=== PATIENT | female | born 1930 | race Caucasian/White ===

== ENCOUNTER 2018-01-31 16:19 | Inpatient (IN) | payer MEDICAID, MEDICARE ==
[~2018-01-31] VITALS: Ht 149.9 cm; Wt 55.8 kg
--- NOTE | 2018-01-31 16:30 | NUR ---
Review of MAR papers from assisted living home was done. Page 3 of 4 is missing. [facility] was called. Nurse Donavan from [facility] will fax the missing page.
[2018-01-31 16:59] LABS: BASOPHILS # (AUTO) 0.1 K/uL (0.0-8.0); BASOPHILS % (AUTO) 0.9 % (0.0-2.0); EOSINOPHILS # (AUTO) 0.2 K/uL (0.0-0.7); EOSINOPHILS % (AUTO) 3.8 % (0.0-7.0); HEMATOCRIT 39.6 % (31.2-41.9); HEMOGLOBIN 12.8 g/dL (10.9-14.3); LYMPHOCYTES # (AUTO) 2.5 K/uL (20.0-40.0); LYMPHOCYTES % (AUTO) 43.8 % (20.5-51.5); MEAN CORPUSCULAR HEMOGLOBIN 27.4 uug (24.7-32.8); MEAN CORPUSCULAR HGB CONC 32 g/dL (32.3-35.6); MEAN CORPUSCULAR VOLUME 84.6 fL (75.5-95.3); MONOCYTES # (AUTO) 0.4 K/uL (2.0-10.0); MONOCYTES % (AUTO) 6.5 % (0.0-11.0); NEUTROPHILS # (AUTO) 2.6 K/uL (1.8-8.9); PLATELET COUNT (AUTO) 236 K/uL (179-408); RED BLOOD CELL COUNT(AUTO) 4.68 MIL/uL (3.63-4.92); WHITE BLOOD COUNT (AUTO) 5.8 K/uL (3.8-11.8)
[2018-01-31 17:04] LABS: CARBON DIOXIDE 32 mmol/L (21-32); CHLORIDE 108 mmol/L (98-107); CREATININE 0.8 mg/dL (0.6-1.3); GLUCOSE 97 mg/dL (74-106); POTASSIUM 3.8 mmol/L (3.5-5.1); UREA NITROGEN, BLOOD 17 mg/dL (7-18)
[2018-01-31 17:15] LABS: ETHANOL < 3 MG/DL (0-0)
[2018-01-31 17:19] LABS: ALANINE AMINOTRANSFERASE 42 U/L (14-59); ALKALINE PHOSPHATASE 112 U/L (50-136); ASPARTATE AMINOTRANSFERASE 22 U/L (15-37); BILIRUBIN,DIRECT 0.1 mg/dL (0.0-0.2); BILIRUBIN,TOTAL 0.5 mg/dL (0.2-1.0); TOTAL PROTEIN, SERUM 7.2 g/dL (6.4-8.2)
[2018-01-31 17:20] LABS: ACETAMINOPHEN < 2.0 ug/mL (10-30)
[2018-01-31 17:26] LABS: *BILIRUBIN,URIN NEGATIVE (NEGATIVE); *BLOOD, URINE 2+ (NEGATIVE); *CLARITY,URINE SLIGHTLY CLOUDY (CLEAR); *COLOR,URINE YELLOW (YELLOW); *KETONES,URINE NEGATIVE (NEGATIVE); *PROTEIN,URINE NEGATIVE (NEGATIVE); *UROBILINOGEN,URINE 0.2 E.U./dl (NORMAL); LEUKOCYTE ESTERASE ,URINE NEGATIVE (NEGATIVE); NITRITE, URINE NEGATIVE (NEGATIVE); UGLUCOSE NEGATIVE (NEGATIVE)
[2018-01-31 17:34] LABS: *AMPHETAMINE, URINE NEGATIVE (NEGATIVE); *BARBITURATE, URINE NEGATIVE (NEGATIVE); *CANNABINOID, URINE NEGATIVE (NEGATIVE); *COCCAINE, URINE NEGATIVE (NEGATIVE); *OPIATE, URINE NEGATIVE (NEGATIVE); *PHENCYCLIDINE SCREEN,URINE NEGATIVE (NEGATIVE)
[2018-01-31 17:40] LABS: BACTERIA,URINE RARE /HPF (NONE SEEN); SQUAMOUS EPITHELIAL CELL,UR FEW /HPF (NONE SEEN)
--- NOTE | 2018-01-31 18:03 | NUR ---
Dinner tray is at bedside, assisted with feeding.
--- NOTE | 2018-01-31 19:10 | NUR ---
Still for transfer [place] [facility], Santiago Obrien is preparing the necessary papers for psych HOLD, SBAR to LOLI Wright
--- NOTE | 2018-01-31 19:32 | NUR ---
REPORT GIVEN TO MHU NURSE, LOLI LAM
[2018-01-31] MEDS ORDERED: MAGN400O6 PO (19:41)
[2018-01-31] MEDS ORDERED: MEMA10TA PO (19:41)
[2018-01-31] MEDS ORDERED: CRAN450C PO (19:41)
[2018-01-31] MEDS ORDERED: ATOR20TA PO (19:41)
[2018-01-31] MEDS ORDERED: APIX5TAB PO (19:41)
[2018-01-31] MEDS ORDERED: ASCO500C18 PO (19:41)
[2018-01-31] MEDS ORDERED: DONE10TA11 PO (19:41)
[2018-01-31] MEDS ORDERED: ACET325T53 PO ×2 (19:41)
[2018-01-31] MEDS ORDERED: FOLI1TAB16 PO (19:41)
--- NOTE | 2018-01-31 19:55 | NUR ---
PT REFUSED MRSA SWAB, MADE AWARE
--- NOTE | 2018-01-31 19:59 | NUR ---
Pt. admitted to [facility]HU, under care of Dr. AYON/CAIT Belongs List completed
[2018-01-31] MEDS ORDERED: ACETAMINOPHEN 325 MG TABLET PO PRN (20:15)
[2018-01-31] MEDS ORDERED: MAGNESIUM HYDROXIDE 30 ML LIQUID UDC PO PRN (20:15)
[2018-01-31] MEDS ORDERED: MAG HYDROX/AL HYDROX/SIMETH 30 ML LIQUID UDC PO PRN (20:15)
[2018-01-31 20:31] VITALS: BP 141/76
--- NOTE | 2018-01-31 20:40 | NUR ---
GPS: Admitted to unit earlier an 88 yr.old female under the care of /Dr. Mendoza in stable condition. Pt.is on a 72 hour hold for GD. Pt.was aggressive,agitated,uncooperative during admission process. Pt.refused initial interview/sign paperworks. Pt.is at high risk for AWOL. Safe environment provided. Will continue to monitor behavior.
[2018-01-31] MEDS: LORAZEPAM 0.5 MG TABLET PO PRN (21:22)
--- NOTE | 2018-01-31 21:25 | NUR ---
GPS: Pt.trying to leave the unit. Re-directed by staff frequently at this time. Re-assured prn. Ativan 0.5mg offered and taken by pt. Will monitor effectiveness.
--- NOTE | 2018-02-01 00:06 | NUR ---
GPS: Asleep at this time. Bed alarm on for safety. In no form of distress noted.
[2018-02-01 07:30] VITALS: BP 176/96
[2018-02-01] MEDS ORDERED: APIXABAN 5 MG TABLET PO ONE (09:00)
[2018-02-01] MEDS: FOLIC ACID 1 MG TABLET PO SCH ×2 (10:12→17:00)
[2018-02-01] MEDS: busPIRone 5 MG TABLET PO SCH ×2 (12:19→17:00)
[2018-02-01 12:49] VITALS: BP 122/86
[2018-02-01] MEDS: LORAZEPAM 0.5 MG TABLET PO PRN ×2 (13:18→18:04)
[2018-02-01 15:45] VITALS: BP 169/88
[2018-02-01] MEDS: APIXABAN 5 MG TABLET PO SCH (17:05)
--- NOTE | 2018-02-01 17:13 | NUR ---
GPS/RN- patient anxious and restless wondering into all rooms, patient taking trash out of trash cans in the rooms, patient unsteady at times, patient high risk for falls. ambulating without regard for own safety. difficult to redirect at times.
--- NOTE | 2018-02-01 17:34 | NUR ---
GPS/RN- Dr Partida aware of patient behavior, sitter ordered for patient for safety. Orders received for Seroquel 12.5mg at 8pm, orders received and read back, consent in chart.
[2018-02-01] MEDS: ATORVASTATIN 20 MG TABLET PO SCH (20:04)
[2018-02-01] MEDS: GABAPENTIN 100 MG CAPSULE PO SCH (20:04)
[2018-02-01] MEDS: QUETIAPINE FUMARATE 25 MG TABLET PO SCH (20:05)
[2018-02-01 20:12] VITALS: BP 111/82
[2018-02-02 07:57] VITALS: BP 145/91
[2018-02-02] MEDS: busPIRone 5 MG TABLET PO SCH ×2 (08:03→17:44)
[2018-02-02] MEDS: GABAPENTIN 100 MG CAPSULE PO SCH ×2 (08:03→20:26)
[2018-02-02] MEDS: FOLIC ACID 1 MG TABLET PO SCH ×2 (08:03→17:44)
[2018-02-02] MEDS: APIXABAN 5 MG TABLET PO SCH ×2 (08:04→17:44)
--- NOTE | 2018-02-02 14:50 | NUR ---
Initial Discharge Instructions: Patient currently resides at [facility] [[address] [place] [address]; [phone]]. Spoke with patient's brother/DPOA, Todd ([phone]) who reports he does not want the patient to return there, as the patient is an AWOL risk at other facility. Pt's brother is requesting a secure facility closer to [facility], as that is close to where he lives. SW will continue to collaborate with pt, family, and MD regarding appropriate discharge disposition for this patient. SW will form a safe and proper discharge.
[2018-02-02 15:59] VITALS: BP 104/73
[2018-02-02] MEDS: QUETIAPINE FUMARATE 25 MG TABLET PO SCH (20:26)
[2018-02-02] MEDS: ATORVASTATIN 20 MG TABLET PO SCH (20:26)
[2018-02-02 21:01] VITALS: BP 118/83
--- NOTE | 2018-02-02 21:14 | NUR ---
RECEIVED PATIENT IN THE DAY ROOM. SHE CONTINUE ON 1:1 SUPERVISION FOR FALL PRECAUTION. SHE IS NOTED A/O X 1. ABLE TO AMBULATE WITH STEADY GAIT. PATIENT HAS LIMITED PALAUAN; HOWEVER; SHE IS NOTED WITH FLIGHT OF IDEAS, TANGENTIAL SPEECH, BRIGHT AFFECT. SHE REMAINS COMPLIANT WITH MEDICATION REGIMENT AT THIS TIME. SAFETY WAS EMPHASIS, BED AT LOWEST POSITION WITH WHEELS LOCKED AND SIDE RAILS UP X 2. WILL CONTINUE TO MONITOR.
[2018-02-02] MEDS: TEMAZEPAM 7.5 MG CAPSULE PO PRN (22:08)
[2018-02-03 07:30] VITALS: BP 123/85
[2018-02-03] MEDS: APIXABAN 5 MG TABLET PO SCH ×2 (08:04→16:10)
[2018-02-03] MEDS: busPIRone 5 MG TABLET PO SCH ×2 (08:04→16:10)
[2018-02-03] MEDS: FOLIC ACID 1 MG TABLET PO SCH ×2 (08:04→16:10)
[2018-02-03] MEDS: GABAPENTIN 100 MG CAPSULE PO SCH ×2 (08:05→20:08)
[2018-02-03 14:25] VITALS: BP 120/70
[2018-02-03] MEDS: LORAZEPAM 0.5 MG TABLET PO PRN (14:36)
--- NOTE | 2018-02-03 16:00 | NUR ---
Firearms Report: Licensed Acupuncturist completed and submitted [employer]arms Report on 02/03/18 for 5250 grave disability certification.
[2018-02-03 20:00] VITALS: BP 122/84
[2018-02-03] MEDS: QUETIAPINE FUMARATE 25 MG TABLET PO SCH (20:00)
[2018-02-03] MEDS: ATORVASTATIN 20 MG TABLET PO SCH (20:08)
[2018-02-04] MEDS: TEMAZEPAM 7.5 MG CAPSULE PO PRN ×2 (00:07→22:08)
[2018-02-04 07:30] VITALS: BP 124/77
--- NOTE | 2018-02-04 08:07 | NUR ---
RECEIVED AN 88 Y/O FEMALE PT FROM [employer], LOLI LAM, PT NOTED ASLEEP IN BED, TO CONTINUE MONITORING.
[2018-02-04] MEDS: FOLIC ACID 1 MG TABLET PO SCH ×2 (09:29→18:36)
[2018-02-04] MEDS: busPIRone 5 MG TABLET PO SCH ×2 (09:30→18:39)
[2018-02-04] MEDS: GABAPENTIN 100 MG CAPSULE PO SCH ×2 (09:30→20:11)
--- NOTE | 2018-02-04 09:30 | NUR ---
PATIENT RECEIVED BREAKFAST TOLERATED WELL, FOLLOWED BY ALL HER DUE MEDICATION.PT IS COMPLIANT AND SEEMS PLEASANT.
[2018-02-04] MEDS: APIXABAN 5 MG TABLET PO SCH ×2 (09:31→18:40)
[2018-02-04 16:09] VITALS: BP 141/74
--- NOTE | 2018-02-04 18:45 | NUR ---
patient became itchy with upper body rash , Dr Estrella informed ordered to start on Zyrtec 10 mg Po, order carried out and first dose given.
[2018-02-04] MEDS: CETIRIZINE HCL 10 MG TABLET PO SCH (19:00)
--- NOTE | 2018-02-04 19:17 | NUR ---
PATIENTS REPORT GIVEN TO FINISHING OPERATORDEPOSITION OPERATOR
[2018-02-04 20:05] VITALS: BP 131/80
[2018-02-04] MEDS: QUETIAPINE FUMARATE 25 MG TABLET PO SCH (20:05)
[2018-02-04] MEDS: ATORVASTATIN 20 MG TABLET PO SCH (20:05)
--- NOTE | 2018-02-05 01:46 | NUR ---
RECEIVED PATIENT IN THE DAY ROOM WATCHING TV. SHE CONTINUE ON 1:1 SUPERVISION FOR SAFETY. SHE IS NOTED A/O X 1. ABLE TO AMBULATE WITH STEADY GAIT. PT SPEAKS LIMITED ESTONIAN; HOWEVER, SHE IS NOTED TANGENTAL, BRIGHT AFFECT. SHE REMAINS MEDICATION COMPLIANT AT THIS TIME. SAFETY WAS EMPHASIS, WILL CONTINUE TO MONITOR CLOSELY.
--- NOTE | 2018-02-05 07:00 | NUR ---
RECEIVED PATIENT ON BED AWAKE WITH 1:1 SITTER AT BEDSIDE. NO ACUTE DISTRESS NOTED. NO SI NOTED. PATIENT IS COOPERATIVE AND COMPLIANT WITH MEDS. IS REDIRECTABLE. COMFORT MEASURES PROVIDED. WILL CONTINUE TO MONITOR.
[2018-02-05 07:30] VITALS: BP 142/83
[2018-02-05] MEDS: FOLIC ACID 1 MG TABLET PO SCH ×2 (08:13→17:39)
[2018-02-05] MEDS: busPIRone 5 MG TABLET PO SCH ×2 (08:13→17:38)
[2018-02-05] MEDS: GABAPENTIN 100 MG CAPSULE PO SCH ×2 (08:14→20:23)
[2018-02-05] MEDS: CETIRIZINE HCL 10 MG TABLET PO SCH (08:14)
[2018-02-05] MEDS: APIXABAN 5 MG TABLET PO SCH ×2 (08:15→17:50)
--- NOTE | 2018-02-05 18:21 | NUR ---
PATIENT IN ACTIVITY ROOM, STILL WITH 1:! SITTER. COOPERATIVE, REDIRECTABLE, AND COMPLIANT WITH MEDS. IN STABLE CONDITION. ALL NEEDS ATTENDED AND ANTICIPATED. WILL CONTINUE TO MONITOR IRENE.
[2018-02-05 20:22] VITALS: BP 106/68
[2018-02-05] MEDS: QUETIAPINE FUMARATE 25 MG TABLET PO SCH (20:23)
[2018-02-05] MEDS: ATORVASTATIN 20 MG TABLET PO SCH (20:23)
[2018-02-06 07:30] VITALS: BP 127/78
[2018-02-06] MEDS: FOLIC ACID 1 MG TABLET PO SCH ×2 (09:50→16:06)
[2018-02-06] MEDS: GABAPENTIN 100 MG CAPSULE PO SCH ×2 (09:50→20:01)
[2018-02-06] MEDS: CETIRIZINE HCL 10 MG TABLET PO SCH (09:51)
[2018-02-06] MEDS: busPIRone 5 MG TABLET PO SCH ×2 (09:51→16:06)
[2018-02-06] MEDS: APIXABAN 5 MG TABLET PO SCH ×2 (09:55→16:07)
[2018-02-06] MEDS: LORAZEPAM 0.5 MG TABLET PO PRN (12:47)
--- NOTE | 2018-02-06 14:53 | NUR ---
SBAR report received. Pt with 1:1 sitter. Pt assessed, no acute distress noted. Pt compliant with routine medications and care. All comfort and safety needs attended to. Pt able to CFS, even when slightly agitated. PRN medication administered as ordered. Will continue to monitor.
[2018-02-06 15:18] VITALS: BP 120/71
[2018-02-06 19:30] VITALS: BP 128/80
[2018-02-06] MEDS: QUETIAPINE FUMARATE 25 MG TABLET PO SCH (20:01)
[2018-02-06] MEDS: ATORVASTATIN 20 MG TABLET PO SCH (20:01)
[2018-02-07 07:30] VITALS: BP 143/68
[2018-02-07] MEDS: FOLIC ACID 1 MG TABLET PO SCH ×2 (08:32→16:08)
[2018-02-07] MEDS: CETIRIZINE HCL 10 MG TABLET PO SCH (08:32)
[2018-02-07] MEDS: GABAPENTIN 100 MG CAPSULE PO SCH ×2 (08:32→20:02)
[2018-02-07] MEDS: busPIRone 5 MG TABLET PO SCH ×2 (08:37→16:08)
[2018-02-07] MEDS: APIXABAN 5 MG TABLET PO SCH ×2 (08:38→16:08)
[2018-02-07 15:02] VITALS: BP 138/69
[2018-02-07] MEDS: LORAZEPAM 0.5 MG TABLET PO PRN (15:03)
[2018-02-07 20:00] VITALS: BP 130/82
[2018-02-07] MEDS: ATORVASTATIN 20 MG TABLET PO SCH (20:02)
[2018-02-07] MEDS: QUETIAPINE FUMARATE 25 MG TABLET PO SCH (20:02)
[2018-02-07] MEDS: TEMAZEPAM 7.5 MG CAPSULE PO PRN (22:01)
[2018-02-08 07:30] VITALS: BP 160/98
[2018-02-08] MEDS: CETIRIZINE HCL 10 MG TABLET PO SCH (08:20)
[2018-02-08] MEDS: FOLIC ACID 1 MG TABLET PO SCH ×2 (08:20→15:32)
[2018-02-08] MEDS: APIXABAN 5 MG TABLET PO SCH ×2 (08:20→15:33)
[2018-02-08] MEDS: busPIRone 5 MG TABLET PO SCH ×3 (08:20→15:32)
[2018-02-08] MEDS: GABAPENTIN 100 MG CAPSULE PO SCH ×2 (08:20→20:03)
[2018-02-08 09:51] LABS: BASOPHILS % (AUTO) 0.7 % (0.0-2.0); EOSINOPHILS # (AUTO) 0.2 K/uL (0.0-0.7); EOSINOPHILS % (AUTO) 3.7 % (0.0-7.0); HEMATOCRIT 38.7 % (31.2-41.9); HEMOGLOBIN 12.8 g/dL (10.9-14.3); LYMPHOCYTES # (AUTO) 2.3 K/uL (20.0-40.0); LYMPHOCYTES % (AUTO) 42.2 % (20.5-51.5); MEAN CORPUSCULAR HGB CONC 33 g/dL (32.3-35.6); MEAN CORPUSCULAR VOLUME 84.5 fL (75.5-95.3); MONOCYTES # (AUTO) 0.3 K/uL (2.0-10.0); NEUTROPHILS # (AUTO) 2.6 K/uL (1.8-8.9); NEUTROPHILS % (AUTO) 47.4 % (38.5-71.5); PLATELET COUNT (AUTO) 223 K/uL (179-408); RED BLOOD CELL COUNT(AUTO) 4.58 MIL/uL (3.63-4.92); WHITE BLOOD COUNT (AUTO) 5.4 K/uL (3.8-11.8)
[2018-02-08 10:06] LABS: ALANINE AMINOTRANSFERASE 30 U/L (14-59); ALKALINE PHOSPHATASE 114 U/L (50-136); ASPARTATE AMINOTRANSFERASE 27 U/L (15-37); BILIRUBIN,TOTAL 1.1 mg/dL (0.2-1.0); CARBON DIOXIDE 31 mmol/L (21-32); CHLORIDE 105 mmol/L (98-107); CREATININE 0.8 mg/dL (0.6-1.3); GLUCOSE 138 mg/dL (74-106); MAGNESIUM 2.1 mg/dL (1.8-2.4); PHOSPHOROUS 3.9 mg/dL (2.5-4.9); POTASSIUM 4.5 mmol/L (3.5-5.1); TOTAL PROTEIN, SERUM 7.4 g/dL (6.4-8.2); UREA NITROGEN, BLOOD 20 mg/dL (7-18)
[2018-02-08 10:15] LABS: THYROID STIMULATING HORMONE 1.787 mIU/mL (0.358-3.740)
[2018-02-08 15:53] VITALS: BP 128/98
[2018-02-08] MEDS: ATORVASTATIN 20 MG TABLET PO SCH (20:03)
[2018-02-08] MEDS: QUETIAPINE FUMARATE 25 MG TABLET PO SCH (20:03)
[2018-02-08 20:15] VITALS: BP 115/95
[2018-02-09 07:30] VITALS: BP 120/63
[2018-02-09] MEDS: GABAPENTIN 100 MG CAPSULE PO SCH ×2 (08:24→20:35)
[2018-02-09] MEDS: CETIRIZINE HCL 10 MG TABLET PO SCH (08:24)
[2018-02-09] MEDS: busPIRone 5 MG TABLET PO SCH ×3 (08:25→17:49)
[2018-02-09] MEDS: APIXABAN 5 MG TABLET PO SCH ×2 (08:26→17:50)
[2018-02-09] MEDS: FOLIC ACID 1 MG TABLET PO SCH ×2 (08:26→17:49)
[2018-02-09 16:00] VITALS: BP 125/89
[2018-02-09 20:15] VITALS: BP 120/82
[2018-02-09] MEDS: ATORVASTATIN 20 MG TABLET PO SCH (20:35)
[2018-02-09] MEDS: QUETIAPINE FUMARATE 25 MG TABLET PO SCH (20:35)
[2018-02-09] MEDS ORDERED: MAGNESIUM HYDROXIDE 30 ML LIQUID UDC PO PRN (22:00)
[2018-02-10] MEDS: TEMAZEPAM 7.5 MG CAPSULE PO PRN (00:29)
--- NOTE | 2018-02-10 06:09 | NUR ---
GPS:RECEIVED PATIENT ON BED AWAKE WITH 1:1 SITTER AT BEDSIDE. NO ACUTE DISTRESS NOTED. NO SI NOTED. PATIENT IS COOPERATIVE AND COMPLIANT WITH MEDS. COMFORT MEASURES PROVIDED. SLEPT 5 HRS THROUGH THE NIGHT.WILL CONTINUE TO MONITOR.
[2018-02-10 07:30] VITALS: BP 138/84
[2018-02-10] MEDS: busPIRone 5 MG TABLET PO SCH ×2 (08:31→12:40)
[2018-02-10] MEDS: FOLIC ACID 1 MG TABLET PO SCH (08:31)
[2018-02-10] MEDS: APIXABAN 5 MG TABLET PO SCH (08:31)
[2018-02-10] MEDS: GABAPENTIN 100 MG CAPSULE PO SCH (08:32)
[2018-02-10] MEDS: CETIRIZINE HCL 10 MG TABLET PO SCH (08:32)
--- NOTE | 2018-02-10 09:29 | NUR ---
Discharge Note: Patient will be discharged to [facility] [[address], [place] [address]; [phone]] via ambulance today. Spoke with Jasper at the facility who states they are ready to accept the patient today. Spoke with patient's brother/DPOA, Todd ([phone]) who is aware and agreeable with discharge plans. Patient is alert and oriented x1, and is cooperative. Patient will follow-up at the facility with Dr. Ansari (Language Path) and Dr. Car (Psychiatrist).
--- NOTE | 2018-02-10 09:55 | NUR ---
GPS/RN- imaging report received, patient with Positive DVT of right leg. Per patient history from facility patient was started on Eliquis 5mg by mouth BID for 90 days on 12/31/17 for DVT. Contacted facility [facility] [[address], [place] [address]; [phone]], spoke with Jayna in Medical Records, she will have nurse call back with results they are in a meeting. call back left for facility.
--- NOTE | 2018-02-10 10:09 | NUR ---
GPS/RN- Received copy of Doppler results from Facility dated 09/01/17. will provide to [facility] for Review with current results of Doppler. contacted facility [facility] [[address] [place] [address]; [phone]]to verify length of medication Eliquis 5 mg PO BID for 90days as per Facility medication sheet order is dated in December , imaging was done in 09/01/17. spoke with Jayna, she will verify medication information to verify if patient was on Eliquis prior to December. She will verify and call back with info.
--- NOTE | 2018-02-10 11:00 | NUR ---
GPS/RN- recevied fax from facility, copy of medication orders. 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 will advise [employer].
--- NOTE | 2018-02-10 12:30 | NUR ---
1100 CALLED [facility] AND REPORT GIVEN TO LOLI PROCTOR WHO WILL ADMIT THE PATIENT. RN INFORMED REGARDING MEDICATIONS TO CONTINUE UPON DUISCHARGED AND REGARDING PATIENT BEHAVIOR. 1215 PATIENT PICKED UP BY AMBULANCE STABLE CONTION. DENIES SI/HI. NO HALLUCINATION/ NO DELUSION NOTED. Addendum: 02/10/18 at 1357 by [facility] ENNIS DISREGARD NOTES WRONG PATIENT.
--- NOTE | 2018-02-10 13:00 | NUR ---
Called [facility] spoke with LOLI Bell report given regarding patient diagnosis, medications to continue at the SNF, patient behavior. 1630 Patient discharged to SNF, picked up by ambulance and stable condition, denies SI/HI. no delusion. No a/v hallucination.
--- NOTE | 2018-02-10 13:32 | NUR ---
GPS/RN- Patient medically cleared by Dr Ladd for discharge.
[2018-02-10 15:37] VITALS: BP 145/80
[2018-02-10] MEDS ORDERED: DOCUSATE SODIUM 100 MG CAPSULE PO SCH (21:00)
== END 2018-02-10 16:30 | DRG 885 ==
LOC: ER 16:22 → GPS 19:34
PROVIDERS: ADMIT Psychiatry & Neurology Psychosomatic Medicine; ATTEND Nurse Practitioner Acute Care
DX: F39 Unspecified mood [affective] disorder (principal); F02.81 Dementia in other diseases classified elsewhere, unspecified severity, with behavioral disturbance; I11.0 Hypertensive heart disease with heart failure; I50.32 Chronic diastolic (congestive) heart failure; E44.1 Mild protein-calorie malnutrition; D68.59 Other primary thrombophilia; I82.511 Chronic embolism and thrombosis of right femoral vein; G30.9 Alzheimer's disease, unspecified; E78.5 Hyperlipidemia, unspecified; F41.9 Anxiety disorder, unspecified; E88.09 Other disorders of plasma-protein metabolism, not elsewhere classified; Z68.24 Body mass index [BMI] 24.0-24.9, adult; Z87.820 Personal history of traumatic brain injury; Z79.899 Other long term (current) drug therapy; Z79.01 Long term (current) use of anticoagulants; Z91.81 History of falling; M19.90 Unspecified osteoarthritis, unspecified site; Z66 Do not resuscitate; Z74.09 Other reduced mobility
CPT/HCPCS: 36415; 71045; 80307; 83735; 84100; 84443; 85025; 93005; 93307; A4663; C1758; G0480; G0480-TC